=== PATIENT | male | born 1990 | race Hispanic/Latino ===

== ENCOUNTER 2016-12-28 17:42 | Emergency (ER) | payer BC ==
[~2016-12-28] VITALS: Ht 165.1 cm; Wt 71.0 kg
[2016-12-28] MEDS ORDERED: PROGRAF5 MG PO (18:21)
[2016-12-28] MEDS ORDERED: MYCOPHENOLAT500 MG PO (18:22)
[2016-12-28] MEDS ORDERED: PREDNISONE5 MG PO (18:23)
[2016-12-28] MEDS ORDERED: ASPIRIN 8181 MG PO (18:23)
[2016-12-28] MEDS ORDERED: NORVASC2.5 MG PO (18:24)
[2016-12-28] MEDS ORDERED: LISINOPRIL10 MG PO (18:24)
[2016-12-28] MEDS ORDERED: FAMOTIDINE20 M3 PO (18:25)
[2016-12-28 18:47] LABS: URINE BILIRUBIN - DIPSTICK NEGATIVE (NEGATIVE); URINE BLOOD DIPSTICK TRACE-INTACT (NEGATIVE); URINE CLARITY CLEAR; URINE COLOR YELLOW; URINE GLUCOSE - DIPSTICK NEGATIVE (NEGATIVE); URINE KETONE NEGATIVE (NEGATIVE); URINE LEUK ESTERASE NEGATIVE (Negative); URINE NITRITE - DIPSTICK NEGATIVE (Negative); URINE PH 5.5 (4.5-8.0); URINE PROTEIN - DIPSTICK NEGATIVE (NEG-TRACE); URINE SPECIFIC GRAVITY >=1.030; URINE UROBILINOGEN - DIPSTICK 0.2 E.U./dL (0.2)
[2016-12-28] MEDS ORDERED: PERCOCET 5/325M1 TAB PO (19:32)
[2016-12-28 19:42] VITALS: BP 135/99
== END 2016-12-28 19:45 | disposition home or self-care (01) | DRG 605 ==
LOC: ED 17:42
PROVIDERS: Emergency Medicine
DX: S20.211A Contusion of right front wall of thorax, initial encounter (principal); Z94.0 Kidney transplant status; W17.89XA Other fall from one level to another, initial encounter; Y93.89 Activity, other specified; Y92.488 Other paved roadways as the place of occurrence of the external cause

== ENCOUNTER 2017-01-18 19:44 | Emergency (ER) | payer BC ==
[~2017-01-18] VITALS: Ht 165.1 cm; Wt 72.0 kg
[~2017-01-18 19:44] MED LIST: ASPIRIN 8181 MG PO; FAMOTIDINE20 M3 PO; LISINOPRIL10 MG PO; MYCOPHENOLAT500 MG PO; NORVASC2.5 MG PO; PERCOCET 5/325M1 TAB PO; PREDNISONE5 MG PO; PROGRAF5 MG PO
[2017-01-18 20:29] LABS: HEMATOCRIT 36.9 % (39.0-50.0); HEMOGLOBIN 12.3 g/dl (14.0-18.0); IMMATURE GRANULOCYTES 0.3 % (0.0-1.0); MEAN CELL VOLUME 82.4 fL CALC (80.0-100.0); MEAN CORPUSCULAR HGB 27.5 pG CALC (26.0-32.0); MEAN CORPUSCULAR HGB CONC 33.3 g/L CALC (32.0-36.0); NEUT# 6.55 thou/uL (1.82-7.42); RED BLOOD COUNT 4.48 mill/uL (4.70-6.10); RED CELL DISTRI WIDTH 12.6 % (11.5-15.5)
[2017-01-18 20:30] LABS: URINE BILIRUBIN - DIPSTICK NEGATIVE (NEGATIVE); URINE BLOOD DIPSTICK NEGATIVE (NEGATIVE); URINE CLARITY CLEAR; URINE COLOR YELLOW; URINE GLUCOSE - DIPSTICK NEGATIVE (NEGATIVE); URINE KETONE NEGATIVE (NEGATIVE); URINE LEUK ESTERASE NEGATIVE (NEGATIVE); URINE NITRITE - DIPSTICK NEGATIVE (Negative); URINE PROTEIN - DIPSTICK NEGATIVE (NEG-TRACE)
[2017-01-18 20:46] VITALS: BP 142/71
[2017-01-18 20:47] LABS: ALBUMIN 4.7 g/dL (3.2-5.0); ALKALINE PHOSPHATASE 95 u/l (38-126); ANION GAP 17 (6-22 (CALC)); BILIRUBIN, TOTAL 1.2 mg/dL (0.0-1.4); BUN 23 mg/dL (9-20); BUN/CREATININE RATIO 17 (12-20 (CALC)); CALCIUM 9.6 mg/dL (8.4-10.2); CARBON DIOXIDE 24 mmol/l (22-30); CHLORIDE 97 mmol/l (95-108); CREATININE 1.3 mg/dL (0.7-1.3); GFR > 60 ML/MIN (>=60 (CALC)); GFR FOR AFR.AMER. > 60 ML/MIN (>=60 (CALC)); GLUCOSE 90 mg/dL (75-110); SGOT/AST 17 u/l (17-59); SGPT/ALT 22 u/l (21-72); SODIUM 135 mmol/l (137-146); TOTAL PROTEIN 7.7 g/dL (6.3-8.2)
== END 2017-01-18 21:15 | disposition home or self-care (01) | DRG 948 ==
LOC: ED 19:44
PROVIDERS: Emergency Medicine
DX: R53.1 Weakness (principal); Z94.0 Kidney transplant status; I10 Essential (primary) hypertension